=== PATIENT | male | born 1960 ===

== ENCOUNTER 2018-03-12 08:41 | Inpatient (IN) | payer BC, OTHER ==
[2018-03-12 08:07] VITALS: BMI 30.1
[2018-03-12 09:36] LABS: BASO % 0.5 % (0.0-2.0); EOS # 0.1 K/uL (0.0-0.7); EOS % 0.6 % (0.0-4.0); HEMOGLOBIN 10.6 g/dL (12.0-18.0); LYMPH # 1.2 K/uL (1.0-4.3); LYMPH % 14.2 % (20.0-40.0); MEAN CELL VOLUME 100.2 fl (80.0-94.0); MEAN CORPUSCULAR HEMOGLOBIN 32.8 pg (27.0-31.0); MEAN CORPUSCULAR HGB CONC 32.8 g/dL (33.0-37.0); MEAN PLATELET VOLUME 9.4 fl (7.2-11.7); MONO # 0.3 K/uL (0.0-0.8); MONO % 4.1 % (0.0-10.0); NEUT # 6.6 K/uL (1.8-7.0); NEUT % 80.6 % (50.0-75.0); NRBC % 0.5 % (0.0-0.0); RBC 3.22 Mil/uL (4.40-5.90); RED CELL DISTRIBUTION WIDTH 17.2 % (11.5-14.5); WHITE BLOOD COUNT 8.2 K/uL (4.8-10.8)
[2018-03-12 09:48] LABS: ALB/GLOB RATIO 0.9 (1.0-2.1); ALBUMIN 4.7 g/dL (3.5-5.0); ALT/SGPT 86 U/L (21-72); AST/SGOT 52 U/L (17-59); BLOOD UREA NITROGEN 16 mg/dl (9-20); CALCIUM 9.7 mg/dL (8.4-10.2); GFR NON-AFRICAN AMERICAN > 60; URIC ACID 5.1 mg/Dl (3.5-8.5)
[2018-03-12] MEDS ORDERED: SODIUM CHLORIDE 0.9% IVPB ONE (10:02)
[2018-03-12] MEDS ORDERED: DIPHENHYDRAMINE IVPB ONE (10:02)
[2018-03-12] MEDS ORDERED: Dexamethasone 10 MG in Sodium Chloride 0.9% 50 ML IVPB ONE (10:02)
[2018-03-12] MEDS ORDERED: DiphenhydrAMINE 50 mg/ml Inj IVP SCH (11:15)
[2018-03-12] MEDS ORDERED: SODIUM CHLORIDE 0.9% IV SCH (11:30)
[2018-03-12] MEDS ORDERED: RITUXIMAB IV SCH (11:30)
[2018-03-12] MEDS: Sodium Chloride 0.9% 500 ML IV SCH ×2 (11:37→14:00)
[2018-03-12] MEDS: Pantoprazole 40 mg EC Tab PO SCH (11:52)
[2018-03-12] MEDS ORDERED: DiphenhydrAMINE 50 mg/ml Inj IVP PRN (12:52)
--- NOTE | 2018-03-12 13:07 | CP.PCM.CON ---
History of Present Illness - History of Present Illness History of Present Illness: This is a 57 yrs old male who was diagnosed to have a polycythemia vera about 6 yrs ago. Initially he needed phlebotomies bur once he was put on the Hydroxyurea ,he did well for a while. 1 yr ago his blood [id number] started to go down , and a bone marrow showed myelofibrosis. After an initial transfusion he counts stayed in the normal range and spleen was normal after he was started on JAKAFI. A couple of weeks ago his spleen started enlarging and he had elevated IGM to 3500. Another marrow done along with a test for waldenstroms macroglobulinemia,. He was positive for MYD88 and cd20 and the diagnosis was confirmed. He is admitted for chemotherapy and hydration to prevent tumor lysis syndrome. Past H/O HTN Does not smoke ,drinks occasionally Past Patient History - Past Medical History & Family History Past Medical History?: Yes - Past Social History Smoking Status: Never Smoked - CARDIAC Hx Hypertension: Yes - PULMONARY Hx Respiratory Disorders: No - NEUROLOGICAL Hx Neurological Disorder: No - HEENT Hx HEENT Problems: No - RENAL Hx Kidney Stones: No - ENDOCRINE/METABOLIC Hx Endocrine Disorders: No - HEMATOLOGICAL/ONCOLOGICAL Hx Blood Disorders: Yes (polycythemia) Hx Blood Transfusions: Yes Hx Blood Transfusion Reaction: No - INTEGUMENTARY Hx Dermatological Problems: No - MUSCULOSKELETAL/RHEUMATOLOGICAL Hx Falls: No - GASTROINTESTINAL Hx Gastritis: Yes - GENITOURINARY/GYNECOLOGICAL Hx Genitourinary Disorders: No - PSYCHIATRIC Hx Substance Use: No - SURGICAL HISTORY Hx Surgeries: No Other/Comment: bone marrow aspiration 01/28/2018 - ANESTHESIA Hx Anesthesia: No Meds Allergies/Adverse Reactions: Allergies Allergy/AdvReac Type Severity Reaction Status Date / Time allopurinol Allergy RASH Verified 03/12/18 10:00 - Medications Medications: Current Medications Acetaminophen (Tylenol 325mg Tab) 650 mg PO STAT [facility] Stop: 03/12/18 17:00 Last Admin: 03/12/18 11:37 Dose: 650 mg Bortezomib (Velcade) 2.5 mg IVP ONCE [facility] Stop: 03/12/18 19:15 Dexamethasone (Decadron Inj) 10 mg IVP ONCE [facility] Stop: 03/12/18 17:00 Last Admin: 03/12/18 11:37 Dose: 10 mg Diphenhydramine HCl (Benadryl) 50 mg IVP ONCE [facility] Stop: 03/12/18 17:00 Last Admin: 03/12/18 11:36 Dose: 50 mg Diphenhydramine HCl (Benadryl) 50 mg IVP ONCE PRN PRN Reason: Allergy symptoms Famotidine (Pepcid) 20 mg IVP STAT [facility] Stop: 03/12/18 17:00 Last Admin: 03/12/18 11:51 Dose: 20 mg Ferrous Sulfate (Feosol) 325 mg PO DAILY [facility] Folic Acid (Folic Acid) 1 mg PO DAILY [facility] Home Med (Probenecid/Colchicine [Probenecid-Colchicine Tabs]) 1 tab PO DAILY [facility] Sodium Chloride (Sodium Chloride 0.9%) 500 mls @ 125 mls/hr IV .Q4H [facility] Last Admin: 03/12/18 11:37 Dose: 125 mls/hr Rituximab 825 mg/ Sodium (Chloride) 332.5 mls @ 36.944 mls/hr IV ONCE [facility] PRN Reason: As Directed Stop: 03/12/18 21:00 Ondansetron HCl 16 mg/ Sodium (Chloride) 58 mls @ 116 mls/hr IVPB ONCE [facility] Stop: 03/12/18 17:00 Last Admin: 03/12/18 11:40 Dose: 116 mls/hr Potassium Chloride 20 meq/ (Sodium Chloride) 1,010 mls @ 125 mls/hr IV .Q8H5M [facility] Stop: 03/13/18 12:53 Methylprednisolone (Solu-Medrol) 125 mg IVP ONCE PRN PRN Reason: Allergy symptoms Metoprolol Tartrate (Lopressor) 50 mg PO DAILY [facility] Pantoprazole Sodium (Protonix Ec Tab) 40 mg PO DAILY [facility] Stop: 03/13/18 09:00 Last Admin: 03/12/18 11:52 Dose: Not Given Pantoprazole Sodium (Protonix Ec Tab) 40 mg PO DAILY [facility] Physical Exam - Additional Findings Additional findings: Physical exam; Alert,well orientede in no acute distress neck; Supple, no adenopoathy Chest; Clear, no rales or rhonchi [place]; RSR, no murmur Abd; Soft, no mass, or hepatomegaly,[id number] Results - Vital Signs Recent Vital Signs: Last Vital Signs Temp 98.7 F 03/12/18 11:36 Pulse 70 03/12/18 11:36 Resp 20 03/12/18 11:36 BP 125/77 03/12/18 11:36 Pulse Ox 98 03/12/18 11:36 - Labs Result Diagrams: 03/12/18 09:25 03/12/18 09:25 Labs: Laboratory Results - last 24 hr 03/12/18 03/12/18 03/12/18 09:25 09:25 10:48 WBC 8.2 RBC 3.22 L Hgb 10.6 L Hct 32.3 L MCV 100.2 H MCH 32.8 H MCHC 32.8 L RDW 17.2 H Plt Count 111 L MPV 9.4 Neut % (Auto) 80.6 H Lymph % (Auto) 14.2 L [place] % (Auto) 4.1 Eos % (Auto) 0.6 Baso % (Auto) 0.5 Neut # (Auto) 6.6 Lymph # (Auto) 1.2 [place] # (Auto) 0.3 Eos # (Auto) 0.1 Baso # (Auto) 0.0 ESR 103 H Sodium 141 Potassium 4.0 Chloride 104 Carbon Dioxide 25 Anion Gap 16 BUN 16 Creatinine 1.2 Est GFR ( Amer) > 60 Est GFR (Non-Af Amer) > 60 Random Glucose 114 H Uric Acid 5.1 Calcium 9.7 Phosphorus 2.8 Magnesium 2.3 Total Bilirubin 1.1 AST 52 ALT 86 H Alkaline Phosphatase 104 Total Protein 9.9 H Albumin 4.7 Globulin 5.2 H Albumin/Globulin Ratio 0.9 L Assessment & Plan - Assessment and Plan (Free Text) Assessment: [id number]; waldenstrom's macroglobulinemia Plan: Plan;; will give bortezomib and rituxan today. and hydrate for 36 hrs afterwards , - Date & Time Date: 03/12/18 Time: 13:14
[2018-03-12] MEDS: Potassium Chl 20 mEq in NS 1,000 ML IV SCH ×2 (13:46→22:21)
--- NOTE | 2018-03-12 16:34 | CP.PCM.HP ---
History of Present Illness - History of Present Illness History of Present Illness: 57 y/o M with a recent diagnosis of waldenstroms macroglobulinemia was admitted s/p 1st round of chemotherapy for evaluation and hydration to prevent tumor lysis syndrome. Pt reports feeling OK, denies fever, chills, headache, chest pain, SOB, abdominal pain, N/V or rash. Present on Admission - Present on Admission Any Indicators Present on Admission: No Past Patient History - Past Medical History & Family History Past Medical History?: Yes - Past Social History Smoking Status: Never Smoked - CARDIAC Hx Hypertension: Yes - PULMONARY Hx Respiratory Disorders: No - NEUROLOGICAL Hx Neurological Disorder: No - HEENT Hx HEENT Problems: No - RENAL Hx Kidney Stones: No - ENDOCRINE/METABOLIC Hx Endocrine Disorders: No - HEMATOLOGICAL/ONCOLOGICAL Hx Blood Disorders: Yes (polycythemia) Hx Blood Transfusions: Yes Hx Blood Transfusion Reaction: No - INTEGUMENTARY Hx Dermatological Problems: No - MUSCULOSKELETAL/RHEUMATOLOGICAL Hx Falls: No - GASTROINTESTINAL Hx Gastritis: Yes - GENITOURINARY/GYNECOLOGICAL Hx Genitourinary Disorders: No - PSYCHIATRIC Hx Substance Use: No - SURGICAL HISTORY Hx Surgeries: No Other/Comment: bone marrow aspiration 01/28/2018 - ANESTHESIA Hx Anesthesia: No Meds Allergies/Adverse Reactions: Allergies Allergy/AdvReac Type Severity Reaction Status Date / Time allopurinol Allergy RASH Verified 03/12/18 10:00 Physical Exam - Constitutional Appears: No Acute Distress - Head Exam Head Exam: ATRAUMATIC, NORMAL INSPECTION - Eye Exam Eye Exam: EOMI, Normal appearance - ENT Exam ENT Exam: Mucous Membranes Moist - Neck Exam Neck exam: Positive for: Full Rom. Negative for: Meningismus - Respiratory Exam Respiratory Exam: Clear to Auscultation Bilateral, NORMAL BREATHING PATTERN - Cardiovascular Exam Cardiovascular Exam: REGULAR RHYTHM, +S1, +S2 - GI/Abdominal Exam GI & Abdominal Exam: Normal Bowel Sounds, Soft. absent: Distended, Guarding, Tenderness - Neurological Exam Neurological exam: Alert, Oriented x3 Results - Vital Signs Recent Vital Signs: Last Vital Signs Temp 98.1 F 03/12/18 16:16 Pulse 65 03/12/18 16:16 Resp 18 03/12/18 16:16 BP 147/93 H 03/12/18 16:16 Pulse Ox 99 03/12/18 16:16 - Labs Result Diagrams: 03/12/18 09:25 03/12/18 09:25 Labs: Laboratory Results - last 24 hr 03/12/18 03/12/18 03/12/18 09:25 09:25 10:48 WBC 8.2 RBC 3.22 L Hgb 10.6 L Hct 32.3 L MCV 100.2 H MCH 32.8 H MCHC 32.8 L RDW 17.2 H Plt Count 111 L MPV 9.4 Neut % (Auto) 80.6 H Lymph % (Auto) 14.2 L [place] % (Auto) 4.1 Eos % (Auto) 0.6 Baso % (Auto) 0.5 Neut # (Auto) 6.6 Lymph # (Auto) 1.2 [place] # (Auto) 0.3 Eos # (Auto) 0.1 Baso # (Auto) 0.0 ESR 103 H Sodium 141 Potassium 4.0 Chloride 104 Carbon Dioxide 25 Anion Gap 16 BUN 16 Creatinine 1.2 Est GFR ( Amer) > 60 Est GFR (Non-Af Amer) > 60 Random Glucose 114 H Uric Acid 5.1 Calcium 9.7 Phosphorus 2.8 Magnesium 2.3 Total Bilirubin 1.1 AST 52 ALT 86 H Alkaline Phosphatase 104 Total Protein 9.9 H Albumin 4.7 Globulin 5.2 H Albumin/Globulin Ratio 0.9 L Assessment & Plan (1) Waldenstroms macroglobulinemia Status: Acute (2) Status post chemotherapy Status: Acute - Assessment and Plan (Free Text) Assessment: --Home medications resumed --On Rituximab, probenecid/colchicine --Hematology/Oncology on board, Dr Sneha Torres --Continue management as ordered --F/U CBC, CMP and uric acid level for tomorrow. - Date & Time Date: 03/12/18 Time: 17:07
[2018-03-13 00:47] VITALS: RESP 19
[2018-03-13] MEDS: Potassium Chl 20 mEq in NS 1,000 ML IV SCH (05:42)
[2018-03-13 06:36] LABS: BASO % 0.2 % (0.0-2.0); EOS % 0.1 % (0.0-4.0); HEMOGLOBIN 10.4 g/dL (12.0-18.0); LYMPH # 0.8 K/uL (1.0-4.3); LYMPH % 7.5 % (20.0-40.0); MEAN CELL VOLUME 99.6 fl (80.0-94.0); MEAN CORPUSCULAR HGB CONC 33.1 g/dL (33.0-37.0); MONO # 0.2 K/uL (0.0-0.8); MONO % 1.6 % (0.0-10.0); NEUT # 9.6 K/uL (1.8-7.0); NEUT % 90.6 % (50.0-75.0); NRBC % 1.2 % (0.0-0.0); PLATELET COUNT 85 K/uL (130-400); RBC 3.16 Mil/uL (4.40-5.90); RED CELL DISTRIBUTION WIDTH 17.3 % (11.5-14.5); WHITE BLOOD COUNT 10.6 K/uL (4.8-10.8)
[2018-03-13 07:07] LABS: ALB/GLOB RATIO 0.9 (1.0-2.1); ALBUMIN 4.5 g/dL (3.5-5.0); ALT/SGPT 113 U/L (21-72); AST/SGOT 51 U/L (17-59); BLOOD UREA NITROGEN 15 mg/dl (9-20); CALCIUM 9.4 mg/dL (8.4-10.2); GFR NON-AFRICAN AMERICAN > 60; URIC ACID 4.6 mg/Dl (3.5-8.5)
[2018-03-13 07:50] VITALS: BP 152/80; PULSE 73; TEMP 97.9; O2SAT 100
[2018-03-13] MEDS ORDERED: PROBENECID PO SCH (09:00)
[2018-03-13] MEDS ORDERED: COLCHICINE PO SCH (09:00)
--- NOTE | 2018-03-13 09:54 | CP.PCM.PN ---
Subjective - Date & Time of Evaluation Date of Evaluation: 03/13/18 Time of Evaluation: 09:50 - Subjective Subjective: Pt is feeling well. Vital signs are normal, , and he tolerated the chemo well.. Will watch for signs of tumor lysis,and if ok will discharge later today Objective - Vital Signs/Intake and Output Vital Signs (last 24 hours): Temp Pulse Resp BP Pulse Ox 97.9 F 73 19 152/80 H 100 03/13/18 07:49 03/13/18 07:49 03/13/18 07:49 03/13/18 07:49 03/13/18 07:49 - Medications Medications: Current Medications Diphenhydramine HCl (Benadryl) 50 mg IVP ONCE PRN PRN Reason: Allergy symptoms Last Admin: 03/12/18 23:31 Dose: 50 mg Ferrous Sulfate (Feosol) 325 mg PO DAILY [facility] Last Admin: 03/13/18 08:26 Dose: 325 mg Folic Acid (Folic Acid) 1 mg PO DAILY [facility] Last Admin: 03/13/18 08:26 Dose: 1 mg Home Med (Probenecid/Colchicine [Probenecid-Colchicine Tabs]) 1 tab PO DAILY [facility] Potassium Chloride/Sodium Chloride (Potassium Chl 20 Meq In Ns) 1,000 mls @ 125 mls/hr IV .Q8H [facility] Stop: 03/13/18 12:53 Last Admin: 03/13/18 05:42 Dose: 125 mls/hr Methylprednisolone (Solu-Medrol) 125 mg IVP ONCE PRN PRN Reason: Allergy symptoms Last Admin: 03/12/18 23:32 Dose: 125 mg Metoprolol Tartrate (Lopressor) 50 mg PO DAILY [facility] Last Admin: 03/13/18 08:26 Dose: 50 mg Pantoprazole Sodium (Protonix Ec Tab) 40 mg PO DAILY [facility] - Labs Labs: 03/13/18 05:25 03/13/18 05:25
[2018-03-13 09:59] LABS: ANISOCYTOSIS SLIGHT; BANDS 8 % (0-2); BASOPHIL 1 % (0-2); HYPOCHROMIC SLIGHT; LYMPHOCYTE 9 % (20-50); MONOCYTE 1 % (0-10); MYELOCYTE 3 % (0-0); NEUTROPHIL 78 % (42-75); NUCLEATED RED BLOOD CELL 2 % (0-0); PLATELET ESTIMATE DECREASED (NORMAL); TOTAL CELLS COUNTED 100
[2018-03-13] MEDS ORDERED: Pantoprazole 40 mg EC Tab PO SCH (10:45)
[2018-03-13] MEDS: Pantoprazole 40 mg EC Tab PO SCH (10:45)
== END 2018-03-13 15:45 | disposition home or self-care (01) | DRG 848 ==
LOC: H.MEDSURG1 09:19 → OBSVTOIN 11:00 → H.MEDSURG1 22:49
PROVIDERS: ADMIT Family Medicine; ATTEND Family Medicine
PROC: 3E03305 Introduction of Other Antineoplastic into Peripheral Vein, Percutaneous Approach (ICD-10-PCS; principal; 2018-03-12)
PROC: 3E033GC Introduction of Other Therapeutic Substance into Peripheral Vein, Percutaneous Approach (ICD-10-PCS; 2018-03-12)
PROC: 3E0333Z Introduction of Anti-inflammatory into Peripheral Vein, Percutaneous Approach (ICD-10-PCS; 2018-03-12)
DX: Z51.11 Encounter for antineoplastic chemotherapy (principal); C88.0 Waldenstrom macroglobulinemia; I10 Essential (primary) hypertension; D45 Polycythemia vera; K29.70 Gastritis, unspecified, without bleeding